=== PATIENT | female | born 1955 | race Caucasian/White ===

== ENCOUNTER 2022-02-05 04:09 | Day surgery (SDC) | payer OTHER ==
[2022-02-04 08:41] VITALS: BMI 28.3
[2022-02-05 09:24] VITALS: RESP 18
[2022-02-05 11:03] VITALS: TEMP 97.5
[2022-02-05 11:52] VITALS: BP 112/61; PULSE 68
== END 2022-02-05 12:12 | disposition home or self-care (01) ==
LOC: JASU-ENDO 04:09
PROVIDERS: ATTEND Internal Medicine Gastroenterology
PROC: 0DBN8ZX Excision of Sigmoid Colon, Via Natural or Artificial Opening Endoscopic, Diagnostic (ICD-10-PCS; principal; 2022-02-05 10:15)
DX: Z12.11 Encounter for screening for malignant neoplasm of colon (principal); D12.5 Benign neoplasm of sigmoid colon; K57.30 Diverticulosis of large intestine without perforation or abscess without bleeding; D50.9 Iron deficiency anemia, unspecified; I10 Essential (primary) hypertension
CPT/HCPCS: 88305-TC

== ENCOUNTER → 2024-07-10 | Day surgery (SDC) | payer OTHER | END | disposition home or self-care (01) | LOC: JRADIR 09:30 | PROVIDERS: ATTEND Otolaryngology | PROC: 0G9G3ZX Drainage of Left Thyroid Gland Lobe, Percutaneous Approach, Diagnostic (ICD-10-PCS; principal; 2024-07-10) | DX: C73 Malignant neoplasm of thyroid gland (principal) | CPT/HCPCS: 10005; 76942; 88173; 88305-TC ==